=== PATIENT | male | born 1955 | race Caucasian/White ===

== ENCOUNTER 2016-09-16 21:00 | Inpatient (IN) ==
[2016-09-16] MEDS ORDERED: DILAUDID 1 MG/ML SYRINGE IVP STA (21:03)
[2016-09-16] MEDS ORDERED: ZOFRAN 4 MG/2 ML IVP STA (21:03)
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
[2016-09-16 21:30] LABS: BASOPHILS # (AUTO) 0.1 K/uL (0-0.2); BASOPHILS % (AUTO) 0.8 % (0.0-3.0); EOSINOPHILS # (AUTO) 0.3 K/ul (0.0-0.7); EOSINOPHILS % (AUTO) 4.8 % (0.0-7.0); HEMATOCRIT 35.2 % (42.0-52.0); IMMATURE GRANULOCYTE % (AUTO) 0.2 % (0.0-5.0); LYMPHOCYTES # (AUTO) 1.4 K/uL (0.60-3.4); MEAN CORPUSCULAR HEMOGLOBIN 24.8 pg (27.0-31.0); MEAN CORPUSCULAR HGB CONC 31.3 (31.8-35.4); MEAN CORPUSCULAR VOLUME 79.5 fl (80.0-94.0); MONOCYTES # (AUTO) 0.4 K/uL (0.4-2.0); MONOCYTES % (AUTO) 5.9 (0-10); NEUTROPHILS # (AUTO) 4.1 K/ul (2.0-6.9); NEUTROPHILS % (AUTO) 65.3; PLATELET COUNT 246 10^3/uL (140-440); RED BLOOD COUNT 4.43 10^6/ul (4.70-6.10); WHITE BLOOD COUNT 6.27 K/ul (4.2-10.2)
[2016-09-16 21:41] LABS: PROTHROMBIN TIME 10.8 SEC (9.3-11.0)
[2016-09-16] MEDS ORDERED: DILAUDID 2 MG/ML SYRINGE IM STA (21:44)
[2016-09-16] MEDS ORDERED: ZOFRAN 4 MG/2 ML IM STA (21:47)
[2016-09-16 22:00] LABS: ALBUMIN 3.5 g/dL (3.4-5.0); ALBUMIN/GLOBULIN RATIO 0.97; ANION GAP 15.5; BILIRUBIN,TOTAL 1.01 mg/dL (0.00-1.20); CALCIUM 9.7 mg/dL (8.2-10.2); POTASSIUM 3.5 mmol/L (3.5-5.1); TOTAL PROTEIN 7.1 g/dL (6.4-8.2); TROPONIN I 0.031 ng/ml (0.0000-0.4000)
[2016-09-16] MEDS ORDERED: ZOFRAN 4 MG/2 ML IVP PRN (22:53)
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
[2016-09-16] MEDS ORDERED: PROTONIX IV IVP SCH (23:00)
[2016-09-16] MEDS ORDERED: LIDOCAINE 1 % AMP 5 ML (SUTURES) ONE (23:33)
[2016-09-16 23:39] VITALS: BMI 40.5
[2016-09-16] MEDS ORDERED: PROTONIX IV ONE (23:51)
[2016-09-16] MEDS: LOVENOX ONE ×2 (23:54→23:56)
[2016-09-16] MEDS: LOVENOX SUBCUT SCH (23:56)
[2016-09-17] MEDS: PERCOCET 5-325 PO PRN ×3 (00:01→20:39)
[2016-09-17] MEDS: LOVENOX SUBCUT SCH ×4 (00:01→20:30)
[2016-09-17] MEDS: LOVENOX ONE ×2 (00:12→00:13)
[2016-09-17] MEDS: DILAUDID 1 MG/ML SYRINGE IVP PRN ×4 (01:46→17:32)
[2016-09-17 06:11] LABS: BASOPHILS % (AUTO) 0.8 % (0.0-3.0); EOSINOPHILS # (AUTO) 0.3 K/ul (0.0-0.7); EOSINOPHILS % (AUTO) 7.3 % (0.0-7.0); HEMATOCRIT 32.8 % (42.0-52.0); HEMOGLOBIN 10.3 g/dl (14.0-18.0); IMMATURE GRANULOCYTE % (AUTO) 0.3 % (0.0-5.0); LYMPHOCYTES # (AUTO) 1.4 K/uL (0.60-3.4); LYMPHOCYTES % (AUTO) 34.8 (10.0-50.0); MEAN CORPUSCULAR HEMOGLOBIN 25.1 pg (27.0-31.0); MEAN CORPUSCULAR HGB CONC 31.4 (31.8-35.4); MEAN CORPUSCULAR VOLUME 79.8 fl (80.0-94.0); MONOCYTES # (AUTO) 0.4 K/uL (0.4-2.0); MONOCYTES % (AUTO) 8.8 (0-10); NEUTROPHILS # (AUTO) 1.9 K/ul (2.0-6.9); PLATELET COUNT 220 10^3/uL (140-440); RED BLOOD COUNT 4.11 10^6/ul (4.70-6.10); WHITE BLOOD COUNT 3.96 K/ul (4.2-10.2)
[2016-09-17 06:26] LABS: ANION GAP 12.6; BUN/CREATININE RATIO 9.82; CALCIUM 8.9 mg/dL (8.2-10.2); CREATININE 1.12 mg/dL (0.60-1.10); POTASSIUM 3.6 mmol/L (3.5-5.1)
[2016-09-17 06:45] LABS: TROPONIN I 0.014 ng/ml (0.0000-0.4000)
[2016-09-17] MEDS: NEURONTIN PO SCH ×3 (08:46→20:29)
[2016-09-17] MEDS: ASPIRIN EC PO SCH (08:46)
[2016-09-17] MEDS: ZYLOPRIM PO SCH ×2 (08:46→20:29)
[2016-09-17] MEDS: LOPRESSOR PO SCH ×2 (08:47→20:29)
[2016-09-17] MEDS: GLUCOPHAGE PO SCH (08:47)
[2016-09-17] MEDS ORDERED: DILAUDID 1 MG/ML SYRINGE IVP STA (08:52)
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
--- NOTE | 2016-09-17 11:34 | US ---
EXAM: Ultrasound right upper extremity venous Doppler. HISTORY: Right upper extremity deep vein thrombosis follow-up. Patient on anticoagulation. COMPARISON: None available. TECHNIQUE: Multiple tee scale and color Doppler images. FINDINGS: There is normal color flow, compressibility, and augmentation of flow within the right ju gular, subclavian, axillary, brachial, radial, and ulnar veins. Within the mid aspect of the upper arm, there is intraluminal echogenicity with only partial color flow and compressibility within the right basilic vein. The basilic vein is otherwise patent. Within the forearm, there is only partial compressibility of the cephalic vein. The cephalic vein is otherwise patent. IMPRESSION: 1. Nonocclusive thrombus within the right basilic vein in the mid-upper arm and the right cephalic vein in the forearm, which are superficial veins. 2. No evidence for right upper extremity deep vein thrombosis at the levels examined.
[2016-09-17 13:43] LABS: TROPONIN I 0.023 ng/ml (0.0000-0.4000)
[2016-09-17] MEDS: ZOCOR PO SCH (20:29)
[2016-09-18] MEDS: PROTONIX IV IVP SCH ×2 (01:04→20:42)
[2016-09-18] MEDS: DILAUDID 1 MG/ML SYRINGE IVP PRN ×4 (04:01→20:42)
[2016-09-18 06:31] LABS: BASOPHILS % (AUTO) 1.2 % (0.0-3.0); EOSINOPHILS # (AUTO) 0.3 K/ul (0.0-0.7); EOSINOPHILS % (AUTO) 7.7 % (0.0-7.0); HEMATOCRIT 35.3 % (42.0-52.0); HEMOGLOBIN 10.7 g/dl (14.0-18.0); IMMATURE GRANULOCYTE % (AUTO) 0.3 % (0.0-5.0); LYMPHOCYTES % (AUTO) 31.5 (10.0-50.0); MEAN CORPUSCULAR HEMOGLOBIN 24.5 pg (27.0-31.0); MEAN CORPUSCULAR HGB CONC 30.3 (31.8-35.4); MONOCYTES # (AUTO) 0.2 K/uL (0.4-2.0); MONOCYTES % (AUTO) 7.4 (0-10); NEUTROPHILS # (AUTO) 1.7 K/ul (2.0-6.9); NEUTROPHILS % (AUTO) 51.9; PLATELET COUNT 215 10^3/uL (140-440); RED BLOOD COUNT 4.36 10^6/ul (4.70-6.10); WHITE BLOOD COUNT 3.24 K/ul (4.2-10.2)
[2016-09-18 06:49] LABS: ANION GAP 15.1; BUN/CREATININE RATIO 9.56; CREATININE 1.15 mg/dL (0.60-1.10); POTASSIUM 4.1 mmol/L (3.5-5.1)
[2016-09-18] MEDS: ZYLOPRIM PO SCH ×2 (08:18→20:33)
[2016-09-18] MEDS: GLUCOPHAGE PO SCH (08:18)
[2016-09-18] MEDS: ASPIRIN EC PO SCH (08:18)
[2016-09-18] MEDS: LOPRESSOR PO SCH ×2 (08:18→20:34)
[2016-09-18] MEDS: NEURONTIN PO SCH ×3 (08:18→20:33)
[2016-09-18] MEDS: LOVENOX SUBCUT SCH ×2 (08:19→20:35)
[2016-09-18] MEDS: ZOCOR PO SCH (20:34)
[2016-09-19] MEDS: DILAUDID 1 MG/ML SYRINGE IVP PRN ×5 (00:53→22:57)
[2016-09-19 07:37] LABS: BASOPHILS % (AUTO) 0.8 % (0.0-3.0); EOSINOPHILS # (AUTO) 0.2 K/ul (0.0-0.7); EOSINOPHILS % (AUTO) 6.6 % (0.0-7.0); HEMATOCRIT 33.9 % (42.0-52.0); HEMOGLOBIN 10.3 g/dl (14.0-18.0); IMMATURE GRANULOCYTE % (AUTO) 0.3 % (0.0-5.0); LYMPHOCYTES # (AUTO) 1.1 K/uL (0.60-3.4); LYMPHOCYTES % (AUTO) 28.8 (10.0-50.0); MEAN CORPUSCULAR HEMOGLOBIN 24.4 pg (27.0-31.0); MEAN CORPUSCULAR HGB CONC 30.4 (31.8-35.4); MEAN CORPUSCULAR VOLUME 80.3 fl (80.0-94.0); MONOCYTES # (AUTO) 0.3 K/uL (0.4-2.0); MONOCYTES % (AUTO) 8.5 (0-10); PLATELET COUNT 226 10^3/uL (140-440); RED BLOOD COUNT 4.22 10^6/ul (4.70-6.10); WHITE BLOOD COUNT 3.65 K/ul (4.2-10.2)
[2016-09-19] MEDS ORDERED: GI COCKTAIL PO STA (07:59)
[2016-09-19 08:05] LABS: ANION GAP 12.2; BUN/CREATININE RATIO 11.53; CALCIUM 9.1 mg/dL (8.2-10.2); CREATININE 1.04 mg/dL (0.60-1.10); POTASSIUM 4.2 mmol/L (3.5-5.1)
[2016-09-19] MEDS: ASPIRIN EC PO SCH (08:19)
[2016-09-19] MEDS: GLUCOPHAGE PO SCH (08:20)
[2016-09-19 08:22] LABS: AMYLASE 62 U/L (25-115); LIPASE 30 U/L (8-78)
[2016-09-19] MEDS ORDERED: LOVENOX SUBCUT SCH (09:00)
[2016-09-19] MEDS: NEURONTIN PO SCH ×3 (09:08→21:13)
[2016-09-19] MEDS: ZYLOPRIM PO SCH ×2 (09:08→21:13)
[2016-09-19] MEDS: LOPRESSOR PO SCH ×2 (09:08→21:13)
[2016-09-19] MEDS: LOVENOX SUBCUT SCH (09:09)
--- NOTE | 2016-09-19 10:10 | CT ---
Exam: CT abdomen and pelvis without IV contrast. Clinical indication: Abdominal pain. TECHNIQUE: Axial unenhanced CT images of the abdomen and pelvis were obtained followed by coronal a nd sagittal reformats. There are no prior studies available for comparison. Findings: There is no free intra-abdominal gas or fluid. There has been a prior cholecystectomy. The liver, adrenals, pancreas, spleen are unremarkable, given the limitations of an unenhanced CT. There is a 0.8 cm stone within the inferior aspect of the right kidney. There are no other renal kg culi bilaterally, along the course of the bilateral ureters are within the urinary bladder. Bilater al kidneys are otherwise unremarkable. There are no enlarged abdominal or pelvic lymph nodes, by size criteria. The visualized portions lower thorax are within normal limits. There is an IVC filter in an infrarenal location. The bowel, including the appendix, is unremarkable. There is multilevel lumbar degenerative disc and facet disease. There is evidence of prior median s ternotomy. There is abnormal orientation of the facet joints involving the L2-L3 vertebral body giv ing a pseudo pars interarticularis appearance. Impression: 1. 0.8 cm nonobstructive right renal calculus. 2. Multilevel lumbar degenerative disc and facet disease. 3. Otherwise unremarkable CT of the abdomen and pelvis, given the limitations of an unenhanced CT.
[2016-09-19] MEDS: ZOCOR PO SCH (21:12)
[2016-09-19] MEDS: PROTONIX IV IVP SCH (21:38)
[2016-09-20] MEDS: DILAUDID 1 MG/ML SYRINGE IVP PRN (04:20)
[2016-09-20 05:13] LABS: BASOPHILS % (AUTO) 0.7 % (0.0-3.0); EOSINOPHILS # (AUTO) 0.3 K/ul (0.0-0.7); EOSINOPHILS % (AUTO) 5.8 % (0.0-7.0); HEMATOCRIT 34.6 % (42.0-52.0); HEMOGLOBIN 10.5 g/dl (14.0-18.0); IMMATURE GRANULOCYTE % (AUTO) 0.4 % (0.0-5.0); LYMPHOCYTES # (AUTO) 1.1 K/uL (0.60-3.4); LYMPHOCYTES % (AUTO) 24.3 (10.0-50.0); MEAN CORPUSCULAR HEMOGLOBIN 24.4 pg (27.0-31.0); MEAN CORPUSCULAR HGB CONC 30.3 (31.8-35.4); MEAN CORPUSCULAR VOLUME 80.5 fl (80.0-94.0); MONOCYTES # (AUTO) 0.4 K/uL (0.4-2.0); NEUTROPHILS # (AUTO) 2.7 K/ul (2.0-6.9); NEUTROPHILS % (AUTO) 60.8; PLATELET COUNT 225 10^3/uL (140-440); WHITE BLOOD COUNT 4.48 K/ul (4.2-10.2)
[2016-09-20 05:31] LABS: ANION GAP 14.2; BUN/CREATININE RATIO 12.62; CALCIUM 9.3 mg/dL (8.2-10.2); CREATININE 1.03 mg/dL (0.60-1.10); POTASSIUM 4.2 mmol/L (3.5-5.1)
[2016-09-20] MEDS: ASPIRIN EC PO SCH (08:23)
[2016-09-20] MEDS: GLUCOPHAGE PO SCH (08:23)
[2016-09-20] MEDS: PERCOCET 5-325 PO PRN (08:24)
[2016-09-20] MEDS: LOPRESSOR PO SCH (08:24)
[2016-09-20] MEDS: NEURONTIN PO SCH (08:24)
[2016-09-20] MEDS: ZYLOPRIM PO SCH (08:25)
[2016-09-20] MEDS: LOVENOX SUBCUT SCH (08:26)
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
[2016-09-20 11:13] VITALS: BP 152/89; TEMP 98
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
--- NOTE | 2016-09-20 11:27 | PN ---
DATE OF SERVICE: 09/19/16 SUBJECTIVE: The patient is upset because the nurse was not giving him the Dilaudid when he was requesting it. I did try to explain that they are busy with other patient otherwise still complains about the pain. He has tried to do some exercises with the squeezing ball, squeezing the thumb it is not helping much. REVIEW OF SYSTEMS: CONSTITUTIONAL: No fever, no chills. HEENT: Normal. ENDOCRINE: No weight gain, no weight loss. CVS: No angina symptoms. No CHF symptoms. No palpitations. No atypical chest pain for CAD. No shortness of breath. No PND, no orthopnea. RESPIRATORY: No cough, no hemoptysis. GI: No nausea, no vomiting. No abdominal pain. : No hematuria. No polyuria. MUSCULOSKELETAL:. No joint swelling. PSYCHIATRIC: Not anxious. No depression. No suicidal thoughts. No homicidal thoughts. SKIN: Intact. No rash. PHYSICAL EXAMINATION: V/S: Blood pressure is 132/64, respiratory rate 16, heart rate 82 and temperature 97.9. HEENT: Normocephalic, atraumatic. Ears, eyes, nose and throat normal. NECK: Supple. No JVD, no carotid bruit. No lymphadenopathy. LUNGS: Clear to auscultation. No rales or rhonchi. HEART: S1, S2 normal. No S3. No murmur, gallop or regurgitation. ABDOMEN: Soft, nontender. Bowel sounds active. No rigidity. No rebound or guarding. No CVA tenderness. EXTREMITIES: No clubbing, cyanosis or pedal edema. Right arm swelling is some better, tenderness is still present. MUSCULOSKELETAL: No joint swelling. NEUROLOGIC: Awake, alert, oriented times three. No focal deficit. LYMPHATIC: No lymph nodes palpable. SKIN: Intact. LABS: WBC 3.65, hgb 10.3, hct 33.9, plt count 226, Sodium 138, potassium 4.2, chloride 105, bicarb 25, BUN 12, creatinine 1.04 and glucose 152. ASSESSMENT: 1. Right upper extremity DVT, non occlusive 2. History of Hemoptysis 3. History of GI bleed, stable hgb now. 4. Recurrent DVT's 5. Coronary artery disease, bypass surgery status post stents. 6. Hypertension 7. Dyslipidemia PLAN: 1. Dilaudid Q 4 hours along with the Percocet 2. Lovenox 3. Keep doing the exercise with the upper extremity 4. Risk of GI bleed been discussed. TIME SPENT: More than 30 minutes MTDD
--- NOTE | 2016-09-23 12:05 | DS ---
DATE OF SERVICE: 09/20/16 FINAL DIAGNOSIS: 1. RIGHT UPPER EXTREMITY NONOCCLUSIVE DEEP VEIN THROMBOSIS OF RIGHT BASILIC VEIN IN THE MID-UPPER ARM AND THE RIGHT CEPHALIC VEIN IN THE FOREARM, WHICH ARE SUPERFICIAL VEINS 2. HISTORY OF RECURRING DEEP VEIN THROMBOSIS IN THE RIGHT UPPER EXTREMITY. 3. HISTORY OF HEMOPTYSIS 4. HISTORY OF GI BLEED 5. CORONARY ARTERY DISEASE, BYPASS SURGERY, STATUS POST STENTS 6. HYPERTENSION 7. DYSLIPIDEMIA 8. ANXIETY DISORDER 9. OSTEOARTHRITIS 10. RHEUMATOID ARTHRITIS 11. HYPOTHYROIDISM 12. HISTORY OF CHOLECYSTECTOMY 13. CORONARY ARTERY BYPASS GRAFT IN DECEMBER 2012 14. IVC FILTER PLACEMENT IN 2004 15. POST TRAUMATIC STRESS DISORDER 16. DEPRESSION, FOLLOWED BY DR. WEEMS 17. DIABETES MELLITUS PLAN: 1. Discharge the patient to home. 2. Follow up in the [facility] [place] within five days. 3. Follow up in the clinic September 29, 2016. 4. Keep appointment with [facility]. 5. Diet: Cardiac and regular diet. 6. Activity: As much as tolerated. HOME MEDICATIONS: Please continue the same, as nothing has changed. DISEASE SPECIFIC EDUCATION: About the DVT, risk of PE, recurring DVT's, anticoagulation and risk of GI bleed and intracranial bleed discussed as the patient is on a lot of them right now. HOSPITAL COURSE: Mr. Terrell Terrell, who is a 61 year old male, who was recently at [facility] for right upper extremity nonocclusive DVT for which the patient has initially started on the Lovenox and then was transitioned to the Coumadin and then started having hematemesis and hemoptysis. They thought that it was peptic ulcer disease which was causing the bleeding. The [facility] physician thought that it was a nonocclusive superficial vein thrombus and less likely chance of having a PE, so he gave only the aspirin 81 mg. The patient was discharged and he comes and stays in [place] and the [place] area for work reasons. He started having the right upper extremity pain and swelling and so he came to the ER which did show the basilic vein and the axillary vein partially occluded with thrombus. At that time, the patient was admitted and the hemoglobin was normal, so the patient was started on the Lovenox 1 mg per kg. Hemoglobin was steady, but the given impression was that he was having a lot of pain in the right upper extremity so the patient was given Dilaudid for that. After frequent discussions with the patient and multiple evaluations, the patient agreed upon not having blood thinner like Coumadin, Apixaban, or Xarelto for the right upper extremity DVT in view of the GI bleed. The patient verbalized understanding that the GI bleeding is the worse thing and he does not want to be on a blood thinner to give him time. At that time, Kirstin Flores made an appointment with [facility] in [place] and with me in one week. Time spent on the patient is more than 45 minutes today. MARITA
--- NOTE | 2016-11-30 13:17 | HP ---
DATE OF SERVICE: 09/16/16 CHIEF COMPLAINT/HISTORY OF PRESENT ILLNESS: This is a 61-year-old male who came to the emergency room with right upper extremity swelling, pain, has a history of clots in the past with history of PE in the past. He could not take Lovenox secondary to GI bleed. He has an SVC filter. He is from [place] and working here on a site, seen by Dr. Davis in the emergency room. Right arm was swollen, tender. Labs showed a hemoglobin of 10.5, PT-INR was normal. In view of patient's history of DVT, pulmonary embolism and swollen arm, the patient is admitted to the hospital with Lovenox to rule out pulmonary DVT in right upper extremity. REVIEW OF SYSTEMS: CONSTITUTIONAL: Weakness, tiredness. No fever, no chills. HEENT: Normal. ENDOCRINE: No weight gain; no weight loss. CVS: No chest pain. No PND, no orthopnea. No shortness of breath. RESPIRATORY: No cough, no congestion. No hemoptysis. GI: No nausea, no vomiting. No abdominal pain. No melena. : No hematuria. No polyuria. MUSCULOSKELETAL: Right upper extremity swollen, tender and painful. PSYCHIATRIC: Not anxious. No depression. No suicidal thoughts. No homicidal thoughts. SKIN: Intact, no open lesions. PAST MEDICAL HISTORY: Coronary artery disease Heart attacks times three Double bypass in 2012 Hypercholesterolemia Hypertension DVT in the arm DVT in lower extremity status post IVC filter COPD GERD Osteoarthritis Rheumatoid arthritis Diabetes mellitus Posttraumatic stress disorder PAST SURGICAL HISTORY: Bypass surgery 2013 Umbilical hernia repair [place] with [place] History of gout PERSONAL HISTORY: The patient has never smoked. No history of substance abuse. . Lives in [place]. FAMILY HISTORY: OR, colon cancer. MEDICATIONS: (HOME) Zocor Ecotrin Prilosec Lopressor Neurontin Allopurinol Glucophage ALLERGIES: IODINATED CONTRAST MEDIA, ORAL MORPHINE, TRAMADOL PHYSICAL EXAMINATION: V/S: BP 160/99, respiratory rate 22, heart rate 86, temperature 97.9, saturation 96 HEENT: Atraumatic, normocephalic. Mucosa dry, pallor positive. No icterus. NECK: Supple. No JVD, no bruit. No lymphadenopathy. No thyromegaly. HEART: S1, S2 normal. No murmur, gallop or regurgitation. LUNGS: Bilateral air entry is decreased and clear. ABDOMEN: Soft, nontender. Bowel sounds are active. No CVA tenderness. No rigidity or guarding. EXTREMITIES: No cyanosis, clubbing or pedal edema. Right upper arm is swollen, tender in the arm area, not warm to touch. Pulse in the radial is present. MUSCULOSKELETAL: Normal joints, no swelling. NEUROLOGIC: The patient is awake, alert.. SKIN: Intact; no open lesions. LYMPHATIC: No lymph nodes palpable. LABS: White count 6.27, hemoglobin 11.0, hematocrit 35.2, platelet count 246. INR 1.05 , sodium 139, potassium 3.5, chloride 106, bicarb 21, BUN 10, creatinine 1.0. ASSESSMENT: 1. RIGHT UPPER EXTREMITY SWELLING AND PAIN, RULE OUT DVT 2. HISTORY OF DVT 3. HISTORY OF CORONARY ARTERY DISEASE STATUS POST BYPASS SURGERY 4. HYPERTENSION 5. DYSLIPIDEMIA 6. PTSD PLAN: 1. Admit the patient to the regular floor 2. Regular diet 3. Lovenox SubQ 4. Venous Doppler right upper extremity 5. Continue home medications 6. Will follow with the patient in daily rounds TIME SPENT: More than 55 minutes today MARITA
== END 2016-09-20 11:33 | disposition home or self-care (01) | DRG 301 ==
LOC: ED 21:00 → MEDSURG B 22:49
PROVIDERS: ADMIT Emergency Medicine; ATTEND Emergency Medicine
DX: I82.612 Acute embolism and thrombosis of superficial veins of left upper extremity (principal); I82.721 Chronic embolism and thrombosis of deep veins of right upper extremity; M79.601 Pain in right arm; Z86.711 Personal history of pulmonary embolism; Z95.828 Presence of other vascular implants and grafts; I25.10 Atherosclerotic heart disease of native coronary artery without angina pectoris; I10 Essential (primary) hypertension; E11.9 Type 2 diabetes mellitus without complications; E03.9 Hypothyroidism, unspecified; F43.12 Post-traumatic stress disorder, chronic; Y36.90XS War operations, unspecified, sequela; Z79.82 Long term (current) use of aspirin; Z79.899 Other long term (current) drug therapy; I25.2 Old myocardial infarction; Z87.19 Personal history of other diseases of the digestive system; Z95.1 Presence of aortocoronary bypass graft; Z95.5 Presence of coronary angioplasty implant and graft
CPT/HCPCS: 36415; 80048; 80053; 82150; 82550; 83690; 83880; 84484; 85025; 85610; 93005; 93010; 96372; 97802; 99223; 99233; 99239; 99284

== ENCOUNTER 2016-09-29 18:23 | Emergency (ER) ==
[2016-09-29 18:30] VITALS: BP 158/91; TEMP 98.3; BMI 38.9
[2016-09-29] MEDS ORDERED: URO-JET MUCOUSMEMB ONE (18:33)
--- NOTE | 2016-09-29 18:35 | ED.PDOC ---
General Time Seen by Physician: 18:33 Mode of Arrival: Walk-In Information Source: Patient Exam Limitations: No limitations Nursing and Triage Documentation Reviewed and Agree: No <BRANDEE ROUSSEAU JR - Last Filed: 09/29/16 19:45> Stated Complaint: i cant pee <BEST HILLMAN - Last Filed: 09/29/16 20:20> ED Provider: Dr. BEST HILLMAN (BRANDEE ROUSSEAU JR) (BEST HILLMAN) Chief Complaint: Urinary Problem Complaint Exam - Complaint/Exam Patient Complains of: Reports: Dysuria Onset/Duration: a few hours Symptoms Are: Still present Timing: Constant Episodes of Voiding Over Last 12 Hours: 0 Initial Severity: Mild Current Severity: Moderate Location of Pain: Reports: Suprapubic Character: Reports: Dull Aggravating: Reports: Voiding Alleviating: Reports: None Associated Signs and Symptoms: Reports: Decreased urine output, Abdominal Pain ( suprapubic pain). Denies: Diaphoresis, Back pain, Fever, Hematuria, Dysuria, Constipation, Blood in stool, Rectal pain, Appetite change, Nausea, Vomiting, Penile swelling, Penile discharge, Increased urine frequency, Increased thirst, Decreased activity, Lethargy, Scrotal pain, Scrotal swelling Testicular Torsion Risk Factors: Reports: None Abdominal Findings: Present: None Differential Diagnoses: Prostatitis, Pyelonephritis, UTI, Ureteral Calculi, Other <BEST HILLMAN - Last Filed: 09/29/16 20:20> Review of Systems - Review Of Systems Constitutional: Reports: No symptoms Eyes: Reports: No symptoms Ears, Nose, Mouth, Throat: Reports: No symptoms Respiratory: Reports: No symptoms Cardiac: Reports: No symptoms GI: Reports: No symptoms : Reports: Dysuria, Hematuria, Pain, Other (retention) Musculoskeletal: Reports: No symptoms Skin: Reports: No symptoms Neurological: Reports: No symptoms Endocrine: Reports: No symptoms Hematologic/Lymphatic: Reports: No symptoms All Other Systems: Reviewed and Negative <BEST HILLMAN - Last Filed: 09/29/16 20:20> Past Medical History - Past Medical History Endocrine: Reports: None Cardiovascular: Reports: CAD (with 3 stents ), DE (x3), Hypertension, CHF Respiratory: Reports: PE Hematological: Reports: None Gastrointestinal: Reports: None Genitourinary: Reports: None Neuro/Psych: Reports: None Musculoskeletal: Reports: None Cancer: Reports: None Other Pertinent Past Medical History: Obesity, Clot on the right arm - Surgical History General Surgical History: Reports: CABG, Other (IVCF, DE x 3, stents x 3) - Family History Family History: Reports: Heart (most men in the family had CAD ) - Social History Smoking Status: Never smoker Hx Substance Use: No Alcohol Screening: None <BRANDEE ROUSSEAU JR - Last Filed: 09/29/16 19:45> Physical Exam - Physical Exam Appearance: Well-appearing, No pain distress, Well-nourished Pain Distress: Mild Eyes: SOLO ENT: Ears normal, Nose normal, Oropharynx normal Neck: Supple Respiratory: Airway patent Cardiovascular: RRR, Pulses normal, No rub, No murmur GI/: Soft, Nontender, No masses, Bowel sounds normal, No Organomegaly Musculoskeletal: Normal strength, ROM intact, No edema, No calf tenderness Skin: Warm, Dry, Normal color Neurological: Sensation intact, Motor intact, Reflexes intact, Cranial nerves intact, Alert, Oriented Psychiatric: Affect appropriate, Mood appropriate <BEST HILLMAN - Last Filed: 09/29/16 20:20> Interpretation - Radiology Interpretation Radiology Interpretation By: Radiologist Radiology Results: Negative Exam Interpreted: CT Scan <BEST HILLMAN - Last Filed: 09/29/16 20:20> Re-Evaluation - Re-Evaluation Time of Re-Evaluation: 20:19 Status: Unchanged (pvr--324 c c) Vital Signs Stable: Yes Pain Level: 1 Appearance: NAD Lungs: Clear Skin: Warm and Dry Neuro: Alert and Oriented X3 CV: RRR <BEST HILLMAN - Last Filed: 09/29/16 20:20> Critical Care Note - Critical Care Note Total Time (mins): 0 <BEST HILLMAN - Last Filed: 09/29/16 20:20> Course - Course Hematology/Chemistry: 09/29/16 19:06 <BRANDEE ROUSSEAU JR - Last Filed: 09/29/16 19:45> - Course Hematology/Chemistry: 09/29/16 19:06 09/29/16 19:06 <BEST HILLMAN - Last Filed: 09/29/16 20:20> - Course Orders, Labs, Meds: Lab Review 09/29/16 19:06 WBC 6.21 RBC 4.79 Hgb 11.7 L Hct 36.6 L MCV 76.4 L MCH 24.4 L MCHC 32.0 RDW Coeff of Vivian 14.1 Plt Count 298 Immature Gran % (Auto) 0.2 Neut % (Auto) 65.7 Lymph % (Auto) 22.9 [place] % (Auto) 6.8 Eos % (Auto) 3.4 Baso % (Auto) 1.0 Immature Gran # (Auto) 0.0 Neut # 4.1 Lymph # 1.4 [place] # 0.4 Eos # 0.2 Baso # 0.1 Sodium 139 Potassium 4.0 Chloride 107 Carbon Dioxide 19 L Anion Gap 17.0 BUN 16 Creatinine 1.16 H Estimated GFR (MDRD) 64.00 BUN/Creatinine Ratio 13.79 Glucose 183 H Calcium 9.8 Total Bilirubin 0.43 AST 21 ALT 26 Alkaline Phosphatase 69 Total Protein 7.0 Albumin 3.8 Globulin 3.2 Albumin/Globulin Ratio 1.19 Amylase 81 Lipase 14 Orders Category Date Time Status AMYLASE Stat LAB 09/29/16 19:06 Completed CBC W/ AUTO DIFF Stat LAB 09/29/16 19:06 Completed COMPREHENSIVE METABOLIC PANEL Stat LAB 09/29/16 19:06 Completed LIPASE Stat LAB 09/29/16 19:06 Completed UA [URINALYSIS C & S IF INDICATED] Stat LAB 09/29/16 18:34 Uncollected Lidocaine HCl [Uro-Jet] MEDS 09/29/16 18:33 Discontinued 10 ml MUCOUSMEMB .STK-MED ONE Tamsulosin HCl [Flomax] MEDS 09/29/16 18:56 Discontinued 0.8 mg PO ONCE STA CT ABDOMEN/PELVIS WO CONTRAST Stat RADS 09/29/16 18:56 Completed Medications Discontinued Medications Generic Name Dose Route Start Last Admin Trade Name Freq PRN Reason Stop Dose Admin Tamsulosin HCl 0.8 mg 09/29/16 18:56 Flomax PO 09/29/16 18:57 ONCE STA we wanted to insert catheter to relieve the obstruction but he declines (MIGUEL ÁNGEL- ER,BEST) Vital Signs: Temp Pulse Resp BP Pulse Ox 09/29/16 18:26 98.3 F 111 H 18 158/91 H 97 (BRANDEE ROUSSEAU JR) (MIGUEL ÁNGEL-HARRIET,BEST) Departure <BRANDEE ROUSSEAU JR - Last Filed: 09/29/16 19:45> - Departure Time of Disposition: 20:19 Pt referred to PMD for follow-up: Yes Disposition Discussed With: Patient <BEST HILLMAN - Last Filed: 09/29/16 20:20> - Departure Disposition: AMA Discharge Problem: Urinary retention Instructions: Urinary Retention in Men (ED) Condition: Fair Additional Instructions: return prn Allergies/Adverse Reactions: Allergies Iodinated Contrast Media - Oral and Adverse Reaction (Verified 09/29/16 18:38) morphine Adverse Reaction (Verified 09/29/16 18:31) Swelling tongue swelling. Denies difficulty breathing/swallowing. tramadol Adverse Reaction (Verified 09/29/16 18:31) Hives Home Medications: Ambulatory Orders Metoprolol Tartrate [Lopressor] 25 mg PO BID 05/08/16 Omeprazole [Prilosec] 80 mg PO DAILY 05/08/16 Simvastatin [Zocor] 40 mg PO BEDTIME 05/08/16 Allopurinol 100 mg PO BID 09/16/16 Gabapentin [Neurontin] 100 mg PO TID 09/16/16 Metformin HCl [Glucophage] 500 mg PO DAILYWM 09/16/16 Aspirin [Aspirin Chewable] 81 mg PO DAILYWM #30 tab.chew 09/20/16
[2016-09-29] MEDS ORDERED: FLOMAX PO STA (18:56)
[2016-09-29 19:22] LABS: BASOPHILS # (AUTO) 0.1 K/uL (0-0.2); EOSINOPHILS # (AUTO) 0.2 K/ul (0.0-0.7); EOSINOPHILS % (AUTO) 3.4 % (0.0-7.0); HEMATOCRIT 36.6 % (42.0-52.0); HEMOGLOBIN 11.7 g/dl (14.0-18.0); IMMATURE GRANULOCYTE % (AUTO) 0.2 % (0.0-5.0); LYMPHOCYTES # (AUTO) 1.4 K/uL (0.60-3.4); LYMPHOCYTES % (AUTO) 22.9 (10.0-50.0); MEAN CORPUSCULAR HEMOGLOBIN 24.4 pg (27.0-31.0); MEAN CORPUSCULAR VOLUME 76.4 fl (80.0-94.0); MONOCYTES # (AUTO) 0.4 K/uL (0.4-2.0); MONOCYTES % (AUTO) 6.8 (0-10); NEUTROPHILS # (AUTO) 4.1 K/ul (2.0-6.9); NEUTROPHILS % (AUTO) 65.7; PLATELET COUNT 298 10^3/uL (140-440); RED BLOOD COUNT 4.79 10^6/ul (4.70-6.10); WHITE BLOOD COUNT 6.21 K/ul (4.2-10.2)
[2016-09-29 19:44] LABS: ALBUMIN 3.8 g/dL (3.4-5.0); ALBUMIN/GLOBULIN RATIO 1.19; BILIRUBIN,TOTAL 0.43 mg/dL (0.00-1.20); BUN/CREATININE RATIO 13.79; CALCIUM 9.8 mg/dL (8.2-10.2); CREATININE 1.16 mg/dL (0.60-1.10)
--- NOTE | 2016-09-29 20:07 | CT ---
EXAM: CT abdomen and pelvis without contrast HISTORY: Flank pain, hematuria TECHNIQUE: Multi-slice transaxial helical with coronal and sagittal reformed images COMPARISON: CT abdomen/pelvis from 09/19/2016 FINDINGS: Wire sternal sutures are unchanged. The heart is mildly enlarged. No pericardial or pleu ral effusions are detected. There is minimal bronchiectasis with peribronchial thickening. There a re curvilinear bands of density in both lower lungs that may represent atelectasis and/or fibrosis. The hepatic attenuation is normal relative to the spleen. The gallbladder is absent without biliary dilatation. The spleen has normal size and attenuation. The pancreas has normal attenuation. The adrenal glands are normal. A 4.4 mm hemorrhagic or proteinaceous cyst is suggested at the interpola r region right kidney. A similar area of increased attenuation more cephalad in the right kidney mi dzone is 4.4 mm. A nonobstructing calculus at the superior pole of the right kidney is 5.9 mm. The ureters have normal caliber. The nonopacified bladder is normal. The prostate has normal size and attenuation. The intestines have normal caliber without evidence of obstruction or acute inflammation. No lympha denopathy or ascites are detected. A ventral hernia repair has been performed in the past. An infe rior vena cava filter is positioned below the level of the right renal veins. The aorta is atherosc lerotic. Postsurgical changes are noted in the right inguinal region. The bones are free of suspicious osteolytic or osteoblastic lesions. IMPRESSION: 1. Nonobstructing right nephrolithiasis. 2. No ureteral pelvicaliectasis or ureterectasis. 3. Two small hemorrhagic or proteinaceous cysts suggested in the right kidney. 4. Previous cholecystectomy without biliary dilatation. 5. Aortic atherosclerosis and inferior vena cava filter.
== END 2016-09-29 20:57 | disposition left against medical advice (07) ==
LOC: ED 18:23
DX: R33.9 Retention of urine, unspecified (principal); R10.30 Lower abdominal pain, unspecified; R30.0 Dysuria; I10 Essential (primary) hypertension; E66.9 Obesity, unspecified; I25.810 Atherosclerosis of coronary artery bypass graft(s) without angina pectoris; I25.2 Old myocardial infarction; I50.9 Heart failure, unspecified; Z79.899 Other long term (current) drug therapy; Z86.711 Personal history of pulmonary embolism; Z95.5 Presence of coronary angioplasty implant and graft
CPT/HCPCS: 36415; 80053; 82150; 83690; 85025; 99284